=== PATIENT | female | born 1985 | race Caucasian/White ===

== ENCOUNTER 2018-08-10 19:18 | Emergency (ER) | payer MEDICAID ==
[~2018-08-10] VITALS: Ht 154.9 cm; Wt 78.9 kg
[2018-08-10 19:42] VITALS: Ht 154.9 cm; Wt 78.9 kg
[2018-08-10 20:29] LABS: BASOPHIL % 0.6 % (0-2); PLATELET COUNT 200 x10^3mcL (130-400); RED CELL DISTRIBUTION WIDTH 12.3 % (11.5-14.5)
[2018-08-10 20:36] LABS: CALCIUM 8.9 mg/dL (8.5-10.1); CARBON DIOXIDE 25.6 mmol/L (21-32); CHLORIDE SERUM 105 mmol/L (98-107); CREATININE SERUM 0.8 mg/dL (0.6-1.0); GFR1 > 60 mL/min; GLUCOSE SERUM 117 mg/dL (74-106); POTASSIUM SERUM 3.4 mmol/L (3.5-5.1); SODIUM SERUM 142 mmol/L (136-145)
[2018-08-10 20:41] LABS: ALBUMIN 3.9 g/dL (3.4-5.0); ALKALINE PHOSPHATASE 65 U/L (46-116); ALT/SGPT 55 U/L (14-59); AST/SGOT 26 U/L (15-37); BILIRUBIN TOTAL 0.15 mg/dL (0.20-1.00); TOTAL PROTEIN, SERUM 7.3 g/dL (6.4-8.2)
[2018-08-10 21:41] VITALS: BP 130/80
== END 2018-08-10 21:41 | disposition home or self-care (01) ==
LOC: ED 19:18
PROVIDERS: Emergency Medicine
DX: N93.8 Other specified abnormal uterine and vaginal bleeding (principal)
CPT/HCPCS: J1885; J7030

== ENCOUNTER 2018-09-29 17:16 | Emergency (ER) | payer MEDICAID ==
[~2018-09-29] VITALS: Ht 154.9 cm; Wt 76.7 kg
[2018-09-29 17:37] VITALS: Ht 154.9 cm; Wt 76.7 kg
[2018-09-29 18:32] LABS: UA SPECIFIC GRAVITY <=1.005 (1.005-1.035); microscopic required? YES; urine erythrocyte 3+ (NEGATIVE)
[2018-09-29 18:35] LABS: BASOPHIL % 0.8 % (0-2); PLATELET COUNT 282 x10^3mcL (130-400); RED CELL DISTRIBUTION WIDTH 12.1 % (11.5-14.5)
[2018-09-29 20:21] VITALS: BP 100/51
== END 2018-09-29 20:22 | disposition home or self-care (01) ==
LOC: ED 17:16
PROVIDERS: Emergency Medicine
DX: O20.0 Threatened abortion (principal)
CPT/HCPCS: 36415

== ENCOUNTER 2018-10-01 15:37 | Emergency (ER) | payer MEDICAID ==
[~2018-10-01] VITALS: Ht 154.9 cm; Wt 75.3 kg
[2018-10-01 15:57] VITALS: Ht 154.9 cm; Wt 75.3 kg
[2018-10-01 18:30] VITALS: BP 112/76
== END 2018-10-01 18:30 | disposition home or self-care (01) ==
LOC: ED 15:37
DX: O20.0 Threatened abortion (principal); N39.0 Urinary tract infection, site not specified; B95.1 Streptococcus, group B, as the cause of diseases classified elsewhere

== ENCOUNTER 2018-10-07 00:55 | Emergency (ER) | payer MEDICAID ==
[~2018-10-07] VITALS: Ht 154.9 cm; Wt 77.3 kg
[2018-10-07 01:09] VITALS: Ht 154.9 cm; Wt 77.3 kg
[2018-10-07 02:37] LABS: BASOPHIL % 0.5 % (0-2); PLATELET COUNT 281 x10^3mcL (130-400); RED CELL DISTRIBUTION WIDTH 12.6 % (11.5-14.5)
[2018-10-07 04:55] VITALS: BP 130/62
[2018-10-08] MEDS ORDERED: PRENATABS RX1 TAB (03:18)
== END 2018-10-07 04:55 | disposition home or self-care (01) ==
LOC: ED 00:55
PROVIDERS: Emergency Medicine
DX: O26.891 Other specified pregnancy related conditions, first trimester (principal); R10.31 Right lower quadrant pain; Z3A.00 Weeks of gestation of pregnancy not specified
CPT/HCPCS: 36415

== ENCOUNTER 2018-10-07 20:40 | Inpatient (IN) | payer MEDICAID ==
[~2018-10-07] VITALS: Ht 154.9 cm; Wt 77.1 kg
[2018-10-07 20:55] VITALS: Ht 154.9 cm; Wt 77.1 kg
[2018-10-07 22:19] LABS: BASOPHIL % 0.6 % (0-2); PLATELET COUNT 251 x10^3mcL (130-400); RED CELL DISTRIBUTION WIDTH 12.9 % (11.5-14.5)
[2018-10-07 22:21] LABS: CALCIUM 9.4 mg/dL (8.5-10.1); CARBON DIOXIDE 28.7 mmol/L (21-32); CHLORIDE SERUM 104 mmol/L (98-107); CREATININE SERUM 0.7 mg/dL (0.6-1.0); GFR1 > 60 mL/min; GLUCOSE SERUM 100 mg/dL (74-106); POTASSIUM SERUM 3.8 mmol/L (3.5-5.1); SODIUM SERUM 141 mmol/L (136-145)
[2018-10-07 22:25] LABS: ALBUMIN 3.6 g/dL (3.4-5.0); ALKALINE PHOSPHATASE 68 U/L (46-116); ALT/SGPT 35 U/L (14-59); AST/SGOT 10 U/L (15-37); BILIRUBIN TOTAL 0.2 mg/dL (0.20-1.00); LIPASE 148 IU/L (73-393); TOTAL PROTEIN, SERUM 7.1 g/dL (6.4-8.2)
[2018-10-08 03:01] LABS: PHOSPHOROUS 4.6 mg/dL (2.5-4.9)
[2018-10-08 03:02] LABS: CHOLESTEROL/HDL RATIO 5.2
[2018-10-08 03:12] LABS: UA SPECIFIC GRAVITY 1.025 (1.005-1.035); microscopic required? YES; urine erythrocyte 1+ (NEGATIVE)
[2018-10-08] MEDS ORDERED: PRENATABS RX1 TAB (03:18)
[2018-10-08 05:01] VITALS: BP 133/82
[2018-10-08 08:52] VITALS: BP 120/74
[2018-10-08 14:41] VITALS: BP 112/69
[2018-10-08 18:07] VITALS: BP 114/71
[2018-10-08 20:05] VITALS: BP 102/68
[2018-10-09 05:11] VITALS: BP 113/63
[2018-10-09 07:18] LABS: BASOPHIL % 0.4 % (0-2); PLATELET COUNT 200 x10^3mcL (130-400); RED CELL DISTRIBUTION WIDTH 12.9 % (11.5-14.5)
[2018-10-09 08:39] LABS: CALCIUM 8.1 mg/dL (8.5-10.1); CHLORIDE SERUM 105 mmol/L (98-107); CREATININE SERUM 0.7 mg/dL (0.6-1.0); GFR1 > 60 mL/min; GLUCOSE SERUM 86 mg/dL (74-106); POTASSIUM SERUM 3.9 mmol/L (3.5-5.1); SODIUM SERUM 141 mmol/L (136-145)
[2018-10-09 09:27] VITALS: BP 121/75
[2018-10-09 14:04] VITALS: BP 122/75
[2018-10-09 17:14] VITALS: BP 110/67
[2018-10-09 20:08] VITALS: BP 126/63
[2018-10-10 05:31] VITALS: BP 103/70
[2018-10-10 06:47] LABS: CALCIUM 8.1 mg/dL (8.5-10.1); CARBON DIOXIDE 27.2 mmol/L (21-32); CHLORIDE SERUM 105 mmol/L (98-107); CREATININE SERUM 0.7 mg/dL (0.6-1.0); GFR1 > 60 mL/min; GLUCOSE SERUM 77 mg/dL (74-106); POTASSIUM SERUM 3.6 mmol/L (3.5-5.1); SODIUM SERUM 140 mmol/L (136-145)
[2018-10-10 08:39] LABS: BASOPHIL % 0.9 % (0-2); PLATELET COUNT 203 x10^3mcL (130-400); RED CELL DISTRIBUTION WIDTH 11.9 % (11.5-14.5)
[2018-10-10 09:34] VITALS: BP 115/65
== END 2018-10-10 14:18 | disposition home or self-care (01) | DRG 566 ==
LOC: ED 20:40 → DU 10-08 02:09
PROVIDERS: Emergency Medicine; ADMIT Internal Medicine
DX: O00.101 Right tubal pregnancy without intrauterine pregnancy (principal)
CPT/HCPCS: 83880; J0696; J2270; J2405; J7030; Q0092